=== PATIENT | female | born 1990 | race Caucasian/White ===

== ENCOUNTER 2016-11-13 11:59 | Emergency (ER) | payer OTHER ==
[~2016-11-13 11:59] MED LIST: ATARAX,VISTARIL25 MG PO; Chromagen, Feogen, M PO; FLINTSTONES1 TABLET PO; Motrin PO; NAPROSYN500 MG PO; NO HOME MEDS; NORCO 5/3251 TABLET PO; NORCO 7.5/321 TABLET PO; ORTHO CYCLEN1 TABLET PO
== END 2016-11-13 12:10 | disposition left against medical advice (07) ==
LOC: EME 11:59
DX: M54.5 Low back pain (principal); R39.198 Other difficulties with micturition; Z53.21 Procedure and treatment not carried out due to patient leaving prior to being seen by health care provider